=== PATIENT | female | born 1965 | race Caucasian/White ===

== ENCOUNTER → 2021-05-24 09:19 | Outpatient (CLI) | payer BC, SELFPAY ==
[2021-05-24 19:01] LABS: SARS-CoV-2 RNA PCR Negative
== END ==
PROVIDERS: PCP Family Medicine; Visit Provider Physician Assistant Medical
DX: R05 Cough (principal); R51.9 Headache, unspecified; Z20.822 Contact with and (suspected) exposure to COVID-19
CPT/HCPCS: C9803; U0003; U0005

== ENCOUNTER → 2021-08-12 01:44 | Outpatient (CLI) | payer BC, SELFPAY ==
[2021-08-12 19:33] LABS: SARS-CoV-2 RNA PCR Positive
== END ==
PROVIDERS: PCP Family Medicine; Visit Provider Family Medicine
DX: U07.1 COVID-19 (principal)
CPT/HCPCS: C9803; U0003; U0005

== ENCOUNTER 2021-08-16 11:27 | Outpatient (RCR) | payer BC, SELFPAY ==
[2021-08-16 11:35] VITALS: BP 166/90; PULSE 89; RESP 20; TEMP 36.5; O2SAT 100
[2021-08-16] MEDS: diphenhydrAMINE HCl CAP 25 MG CAPSULE PO (11:38)
[2021-08-16] MEDS: ACETAMINOPHEN 325 MG TABLET 650 MG PO (11:38)
[2021-08-16] MEDS: FAMOTIDINE 20 MG TABLET PO (11:38)
[2021-08-16 13:10] VITALS: BP 156/92
--- NOTE | 2021-08-17 08:29 | PC.NURSE ---
Called Jose and she is feeling some better today, but has no questions at this time.
== END 2021-08-16 17:00 ==
LOC: AMCINF 11:27
PROVIDERS: PCP Family Medicine; Visit Provider Internal Medicine Hematology & Oncology
DX: U07.1 COVID-19 (principal); I10 Essential (primary) hypertension
CPT/HCPCS: A9270; M0245; Q0245

== ENCOUNTER 2021-12-18 10:33 | Emergency (ER) | payer BC, SELFPAY ==
[2021-12-18 10:44] VITALS: BP 116/86; PULSE 87; RESP 18; TEMP 36.8; O2SAT 100
--- NOTE | 2021-12-18 11:16 | ED.URI ---
HPI - URI/Sore Throat General Chief Complaint: Upper Respiratory Infection Stated Complaint: Congestion Time Seen by Provider: 12/18/21 11:16 Source: patient Mode of arrival: ambulatory Limitations: no limitations History of Present Illness HPI Narrative: 56-year-old female presents with complaint of nasal congestion, sore throat, ear pressure, mild cough, fatigue for 2 to 3 days. States that she thought that she just had a cold but is concerned due to holiday tomorrow if she has Covid. States that her around her she has Covid. Afebrile. Taking [id number] Tylenol Cold and sinus. All systems reviewed and negative except as noted above. Related Data Allergies Allergy/AdvReac Type Severity Reaction Status Date / Time adhesive tape Allergy Intermediate Rash Verified 12/18/21 11:01 Penicillins Allergy Unknown unknown Verified 12/18/21 11:01 Review of Systems Review of Systems: CONSTITUTIONAL: Denies fever, chills, or sweats. EYES: Denies visual changes, redness, or discharge. ENT: Reports rhinorrhea, congestion, sore throat, or otalgia. CARDIOVASCULAR: Denies chest pain, palpitations, or edema. RESPIRATORY: Reports cough. Denies dyspnea. GASTROINTESTINAL: Denies abdominal pain, nausea, vomiting, or diarrhea. GENITOURINARY: Denies dysuria or hematuria. SKIN: Denies rash or itching. MUSCULOSKELETAL: Denies back pain, joint pain, or myalgia. NEUROLOGIC: Denies headache, numbness, or weakness. PSYCHIATRIC: Denies anxiety or depression. All other systems reviewed are negative, except as documented in HPI. PMFSH Surgical History Surgical History H/O total hysterectomy (~1999) Social History Social History Smoking status: Never smoker Alcohol intake: current Spiritual care concerns: No Comments At time of signature, agree with nursing past medical, surgical, social and family history. There is no relevant family history pertinent to the presenting complaint. Exam Narrative: GENERAL: This is a well-nourished, well-developed patient, in no apparent distress. HEAD: normocephalic, atraumatic. EYES: PERRL. Sclera clear/white. Vision is grossly intact. EARS: External ears normal, auditory canals clear and without drainage, TMs normal without perforation. Hearing grossly intact. NOSE: External nose normal with mild congestion, clear nasal drainage. No erythema or swelling to nares. THROAT: Mucous membranes moist, mild erythema to posterior fornix clear postnasal drainage. NECK: Neck supple, non-tender without lymphadenopathy, masses or thyromegaly. CARDIOVASCULAR: Regular rate and rhythm without murmurs, gallops, or rubs. RESPIRATORY: Clear to auscultation. Breath sounds equal bilaterally. No wheezes, rales, or rhonchi. SKIN: warm, Dry, intact with no suspicious lesions or rash, good texture and turgor. NEURO: awake, alert, and oriented to person, place and time. There were no obvious focal neurologic abnormalities. EXTREMITIES: Normal range of motion to all extremities Course Course Level of Care: Express Care Visit Vital Signs Vital signs: Vital Signs Temperature 36.8 C 12/18/21 10:44 Pulse Rate 87 12/18/21 10:44 Respiratory Rate 18 12/18/21 10:44 Blood Pressure 116/86 12/18/21 10:44 Pulse Oximetry 100 12/18/21 10:44 Temperature 36.8 C 12/18/21 10:44 Pulse Rate 87 12/18/21 10:44 Respiratory Rate 18 12/18/21 10:44 Blood Pressure 116/86 12/18/21 10:44 Pulse Oximetry 100 12/18/21 10:44 Reviewed MDM - URI/Sore Throat MDM Narrative Medical decision making narrative: Patient is aware of diagnosis, understands and agrees to treatment plan. Anticipatory guidance given. Patient agrees to follow-up as directed and is aware of reasons to seek care at the emergency department. Portions of this record may have been created with voice recognition software Differential Diagnos
== END 2021-12-18 11:50 | disposition home or self-care (01) ==
PROVIDERS: Emergency Provider Nurse Practitioner Family; PCP Family Medicine
DX: J06.9 Acute upper respiratory infection, unspecified (principal); Z20.822 Contact with and (suspected) exposure to COVID-19; Z90.711 Acquired absence of uterus with remaining cervical stump
CPT/HCPCS: 87081; 87426; 87804; 87880; 99213; C9803; G0463

== ENCOUNTER 2023-09-14 01:30 | Day surgery (SDC) | payer BC, SELFPAY ==
[2023-08-18 14:01] VITALS: BMI 37.5
--- NOTE | 2023-09-12 09:59 | SUR.PREOP ---
Patient called regarding upcoming procedure. Reviewed preop instructions, appointment times, and procedure prep.
[2023-09-14 06:51] VITALS: BP 172/103; PULSE 78; RESP 18; TEMP 36.3; O2SAT 100; BMI 38.5
[2023-09-14] MEDS: LACTATED RINGERS 1,000 ML 150 ML IV CONT (06:54)
--- NOTE | 2023-09-14 07:47 | PM.HPGS ---
History of Present Illness History of Present Illness Consent: Risks, benefits, and alternatives have been discussed and questions answered. Patient agrees to proceed with procedure. Chief complaint: colon screening Narrative: Justina Garcia is a 58 year old female here for screening colonoscopy, last one 2017 Review of Systems Constitutional: Constitutional: Denies headache(s) and Denies weakness Eyes: Eyes: Denies blurry vision ENT: Reports Normal hearing present, Denies headache(s) and Denies neck pain Cardiovascular: Cardiovascular: Denies chest pain and Denies dyspnea Respiratory: Respiratory: Denies dyspnea Gastrointestinal: Gastrointestinal: Reports no additional gastrointestinal complaints Genitourinary: Genitourinary: Denies dysuria Musculoskeletal: Musculoskeletal: Denies neck pain Integumentary/Breasts: Skin/Breast: Denies dry skin Neurologic: Reports Normal hearing present, Denies headache(s) and Denies weakness Psychiatric: Psychiatric: Denies anxiety Endocrine: Endocrine: Denies change in body appearance Hematologic/Lymphatic: Hematologic/Lymphatic: Denies easy bleeding Allergic/Immunologic: Allergic/Immunologic: Denies urticaria PMFSH Past Medical History Medical History (Updated 09/14/23 @ 07:48 by Wilfredo Feng MD) Colon cancer screening COVID-19 Surgical History Surgical History H/O total hysterectomy (~1999) Social History Social History Smoking status: Never smoker Alcohol intake: current Drinks per week: 2 Substance use: never Living arrangements: with family Spiritual care concerns: No Meds Home Medications and Allergies Home Medications Medication Instructions Recorded Confirmed Type cholecalciferol (vitamin D3) 50 50 mcg PO DAILY 05/18/22 09/14/23 History mcg (2,000 unit) capsule telmisartan 40 1 tablet PO DAILY #90 tabs 06/15/23 09/14/23 Rx mg-hydrochlorothiazide 12.5 mg tablet atenolol 100 mg tablet See Rx Instructions .Route 07/14/23 08/18/23 Rx .COMPLEX #90 tabs fluoxetine 20 mg capsule See Rx Instructions .Route 07/14/23 09/14/23 Rx .COMPLEX #90 caps Allergies Allergy/AdvReac Type Severity Reaction Status Date / Time adhesive tape Allergy Intermediate Rash Verified 01/11/24 06:49 Penicillins Allergy Unknown unknown Verified 09/14/23 06:49 Vital Signs Vital Signs - 24 hr 09/14/23 06:51 Temperature 97.3 F L Pulse Rate 78 Respiratory Rate 18 Blood Pressure 172/103 H Pulse Oximetry 100 Oxygen Delivery Room Air Exam Const: General: comfortable and no acute distress HENMT: Face/Nose/Sinus: Normal nares present Eyes: General: appearance normal, both eyes and all related structures Neck: Neck: no JVD Resp: Auscultation: clear to auscultation bilaterally Cardio: Rate: regular rate Rhythm: regular rhythm GI: Inspection: non-distended GI Palp: Yes Soft to palpation Skin: General skin exam: normal color Neuro: General: gait normal Speech: normal speech Extrem: General: normal to inspection Psych: Mental Status: mental status grossly normal Assessment and Plan Assessment and plan (1) Colon cancer screening: Code(s): Z12.11 - Encounter for screening for malignant neoplasm of colon Status: Acute Assessment and Plan: colonoscopy
--- NOTE | 2023-09-14 07:47 | WPDANESEPPF ---
Anes - Initial Pre Proc Eval Procedure: Operation Date: 09/14/23 08:00 Proposed Procedures p Colonoscopy - Wilfredo Feng MD Date/Time: 09/14/23 07:47 Surgeon: Wilfredo Feng MD Pre Op Diagnosis: colon screening Patient Data Age: 58 Gender: F Height: 1.65 m Weight: 104.9 kg Last Vital Signs Temp 97.3 F L 09/14/23 06:51 Pulse 78 09/14/23 06:51 Resp 18 09/14/23 06:51 BP 172/103 H 09/14/23 06:51 Pulse Ox 100 09/14/23 06:51 O2 Del Method Room Air 09/14/23 06:51 Allergies Allergy/AdvReac Type Severity Reaction Status Date / Time adhesive tape Allergy Intermediate Rash Verified 09/14/23 06:49 Penicillins Allergy Unknown unknown Verified 09/14/23 06:49 Home Medications Medication Instructions Recorded Confirmed Type cholecalciferol (vitamin D3) 50 50 mcg PO DAILY 05/18/22 09/14/23 History mcg (2,000 unit) capsule telmisartan 40 1 tablet PO DAILY #90 tabs 06/15/23 09/14/23 Rx mg-hydrochlorothiazide 12.5 mg tablet atenolol 100 mg tablet See Rx Instructions .Route 07/14/23 08/18/23 Rx .COMPLEX #90 tabs fluoxetine 20 mg capsule See Rx Instructions .Route 07/14/23 09/14/23 Rx .COMPLEX #90 caps Patient hx anesthesia problems: none Family hx anesthesia problems: none Results Review: All pre-operative results and documents have been reviewed as part of the pre-operative evaluation. [facility] Past Medical History Medical History (Updated 09/14/23 @ 07:48 by Wilfredo Feng MD) Colon cancer screening COVID-19 Surgical History Surgical History H/O total hysterectomy (~1999) Social History Social History Smoking status: Never smoker Alcohol intake: current Drinks per week: 2 Substance use: never Living arrangements: with family Spiritual care concerns: No Anes - Eval Final PreProcedure Day of Procedure 09/14/23 07:47 Patient weight: obese Heart: regular rate and rhythm Lungs: clear to auscultation Airway: Mallampati scale class II Neurological: alert and oriented Last oral intake: >/= 8 hours ASA classification: III Emergent: no Anesthetic plan: proceed Anesthesia type and monitoring: general GIVS and standard monitoring Results Review: All pre-operative results and documents have been reviewed as part of the pre-operative evaluation. Informed Consent: The patient's anesthetic plan and its attendant risks and benefits were discussed with the patient/family/POA. Questions were solicited and answers provided to the satisfaction of the patient/family/POA.
[2023-09-14 08:07] VITALS: BP 117/79; PULSE 67; RESP 21; O2SAT 98
[2023-09-14 08:17] VITALS: BP 136/80; PULSE 67; RESP 16; O2SAT 100
[2023-09-14 08:27] VITALS: BP 147/101; PULSE 69; RESP 19; O2SAT 99
== END 2023-09-14 08:33 | disposition home or self-care (01) ==
PROVIDERS: PCP Family Medicine; Visit Provider Internal Medicine Gastroenterology
PROC: 0DJD8ZZ Inspection of Lower Intestinal Tract, Via Natural or Artificial Opening Endoscopic (ICD-10-PCS; CPT 45378; principal; 2023-09-14 08:00)
DX: Z12.11 Encounter for screening for malignant neoplasm of colon (principal); D12.8 Benign neoplasm of rectum; K64.8 Other hemorrhoids; E66.9 Obesity, unspecified; Z68.38 Body mass index [BMI] 38.0-38.9, adult
CPT/HCPCS: 45380; 88305; J2704; J7120